=== PATIENT | male | born 1970 | race Asian ===

== ENCOUNTER 2018-10-03 14:35 | Emergency (ER) | payer OTHER ==
[~2018-10-03] VITALS: Ht 170.2 cm; Wt 117.9 kg
[2018-10-03] MEDS ORDERED: OXYCODONE30 MG PO (14:59)
[2018-10-03] MEDS ORDERED: MOBIC15 MG PO (14:59)
[2018-10-03 16:13] VITALS: BP 140/88; TEMP 98
== END 2018-10-03 16:18 | disposition home or self-care (01) ==
LOC: ED 14:35
DX: M17.11 Unilateral primary osteoarthritis, right knee (principal)
CPT/HCPCS: 96372; 99282; 99283; J1885